=== PATIENT | female | born 1935 | race Caucasian/White ===

== ENCOUNTER 2017-04-01 10:01 | Emergency (ER) | payer MEDICARE, OTHER ==
[~2017-04-01] VITALS: Ht 160 cm; Wt 85.0 kg
[~2017-04-01 10:01] MED LIST: ACET325 PO; AMLO10 PO; ASPI81TA82 PO; EXEL1.5C PO; IMOD2TAB PO; MEMA10 PO; METO25 PO; MIRA33502 PO; TUMS500C PO; ZITH500T PO; ZOCO10TA PO; ZYPR5TAB PO
[2017-04-01 10:09] VITALS: BP 145/69; PULSE 58; RESP 16; O2SAT 95
[2017-04-01 10:13] VITALS: BP 164/69; PULSE 59; RESP 18; TEMP 97.7; O2SAT 95
--- NOTE | 2017-04-01 11:23 | RADRPT ---
EXAM DATE/TIME: 04/01/2017 10:47 [facility] COMPARISON: No previous studies available for comparison. INDICATIONS : Right hand pain post fall. MEDICAL HISTORY : Unobtainable. SURGICAL HISTORY : Unobtainable. ENCOUNTER: Initial ACUITY: 1 day PAIN SCORE: 1/10 LOCATION: Right hand FINDINGS: Three view examination of the right hand demonstrates soft tissue swelling. There is fracture of the distal radius with intra-articular extension. Ulnar styloid fracture. Scattered degenerative changes primarily involving the interphalangeal joints. CONCLUSION: 1. Distal radius and ulnar styloid fractures. Garcia Murcia MD on April 01, 2017 at 11:20 Board Certified Radiologist. This report was verified electronically.
--- NOTE | 2017-04-01 11:24 | RADRPT ---
EXAM DATE/TIME: 04/01/2017 10:54 [facility] COMPARISON: No previous studies available for comparison. INDICATIONS : Right forearm pain post fall. MEDICAL HISTORY : Unobtainable. SURGICAL HISTORY : Unobtainable. ENCOUNTER: Initial ACUITY: 1 day PAIN SCORE: 1/10 LOCATION: Right forearm FINDINGS: Two view examination of the right forearm demonstrates soft tissue swelling. Ulnar styloid fracture. Minimal fracture distal radius without significant displacement. Intra-articular extension. CONCLUSION: Minimally displaced ulnar styloid and distal radius fractures. Garcia Murcia MD on April 01, 2017 at 11:22 Board Certified Radiologist. This report was verified electronically.
--- NOTE | 2017-04-01 11:44 | PD ---
HPI Chief Complaint: Musculoskeletal Complaint Time Seen by Provider: 10:24 Travel History International Travel<30 days: No Contact w/Intl Traveler<30days: No Traveled to known affect area: No History of Present Illness HPI Patient is 81 years old. EMS provides a history. 2 days ago she fell in the bathroom. A plain film was performed [facility] revealing a distal radius fracture. In the ER she denies pain in the wrist. She has no other injury to report. Swelling is constant. PFSH Past Medical History Alzheimer's Disease: Yes Anxiety: Yes Depression: Yes High Cholesterol: Yes Coronary Artery Disease: Yes Dementia: Yes Diabetes: No Diminished Hearing: No Hypertension: Yes Tetanus Vaccination: Unknown Menopausal: Yes Past Surgical History Surgical History: Unable to Obtain Social History Alcohol Use: No Tobacco Use: No Substance Use: No Allergies-Medications (Allergen,Severity, Reaction): Coded Allergies: Iodine (Verified Allergy, Severe, 04/01/17) Shellfish (Verified Allergy, Severe, 04/01/17) Reported Meds & Prescriptions Reported Meds & Active Scripts Active Reported Vitamin D3 (Cholecalciferol) 400 Unit Tab 400 Units PO DAILY Zyprexa (Olanzapine) 7.5 Mg Tab 7.5 Mg PO DAILY Milk of Magnesia Liq (Magnesium Hydroxide) 400 Mg/5 Ml Susp 30 Ml PO DAILY Namenda Xr (Memantine) 28 Mg Caper 28 Mg PO DAILY Metoprolol Tartrate 25 Mg Tab 25 Mg PO BID Lexapro (Escitalopram Oxalate) 10 Mg Tab 10 Mg PO DAILY Neurontin (Gabapentin) 300 Mg Cap 300 Mg PO HS Atorvastatin (Atorvastatin Calcium) 20 Mg Tab 20 Mg PO HS Ecotrin Low Strength (Aspirin) 81 Mg Tabdr 81 Mg PO DAILY Amlodipine (Amlodipine Besylate) 10 Mg Tab 10 Mg PO DAILY Tylenol (Acetaminophen) 325 Mg Tab 650 Mg PO Q6H PRN Review of Systems Except as stated in HPI: all other systems reviewed are Neg General / Constitutional: No: Fever Physical Exam Narrative GENERAL: 81-year-old female, WNWD, NAD SKIN: Focused skin assessment warm/dry. HEAD: Atraumatic. Normocephalic. EYES: Pupils equal and round. No scleral icterus. No injection or drainage. ENT: No nasal bleeding or discharge. Mucous membranes pink and moist. NECK: Trachea midline. No JVD. CARDIOVASCULAR: Regular rate and rhythm. No murmur appreciated. RESPIRATORY: No accessory muscle use. Clear to auscultation. Breath sounds equal bilaterally. GASTROINTESTINAL: Abdomen soft, non-tender, nondistended. Hepatic and splenic margins not palpable. MUSCULOSKELETAL: Ecchymosis/swelling/tenderness throughout the R DRUJ. No gross deformity otherwise. NEUROLOGICAL: Awake and alert. No obvious cranial nerve deficits. Motor grossly within normal limits. Normal speech. PSYCHIATRIC: Appropriate mood and affect; insight and judgment normal. Data Data Last Documented VS Vital Signs Date Time Temp Pulse Resp B/P Pulse Ox O2 Delivery O2 Flow Rate FiO2 04/01/17 10:13 60 18 04/01/17 10:13 97.7 164/69 95 Room Air VS reviewed Orders Forearm (2vws) (04/01/17 10:26) Hand, Complete ([id number]) (04/01/17 10:26) Splint Or Brace Apply/Monitor (04/01/17 12:05) MDM Medical Decision Making Medical Screen Exam Complete: Yes Emergency Medical Condition: Yes Medical Record Reviewed: Yes Differential Diagnosis Intra-articular fracture, hand bone fracture, radius fracture Narrative Course Last 24 hours Impressions Radius/Ulna X-Ray 04/01/17 1026 Signed Impressions: Service Date/Time: Saturday, April 01, 2017 10:54 - CONCLUSION: Minimally displaced ulnar styloid and distal radius fractures. Garcia Murcia MD Hand X-Ray 04/01/17 1026 Signed Impressions: Service Date/Time: Saturday, April 01, 2017 10:47 - CONCLUSION: 1. Distal radius and ulnar styloid fractures. Garcia Murcia MD Sugar tong splint applied. No compartment syndrome. Radial artery 2+ bilaterally. Follow-up with orthopedics as outpt. D/w Dr Lopez. Diagnosis Primary Impression: Radius and ulna distal fracture Qualified Code: S52.501A - Radius and ulna distal fracture, right, closed, initial encounter Referrals: Oscar Lopez MD 2 days Additional Instructions: You have a choice when it comes to health care, and we are glad that you chose [facility]. Hopefully, we have met your expectations on today's visit. You are welcome to return to [facility] at any time, as we are committed to meeting the health care needs of our community. Med/Other Pt SpecificInfo: No Change to Meds Disposition: 01 DISCHARGE HOME Condition: Stable Ramon Posey MD April 01, 2017 11:44
[2017-04-01] MEDS ORDERED: ZYPR7.5T PO (12:40)
[2017-04-01] MEDS ORDERED: MEMA28CA PO (12:40)
[2017-04-01] MEDS ORDERED: LEXA10TA PO (12:40)
[2017-04-01] MEDS ORDERED: VITD400 PO (12:40)
[2017-04-01] MEDS ORDERED: NEUR300C PO (12:40)
[2017-04-01] MEDS ORDERED: MILKSUS PO (12:40)
[2017-04-01] MEDS ORDERED: ASPI-147 PO (12:40)
[2017-04-01] MEDS ORDERED: AMLO10TA2 PO (12:40)
[2017-04-01] MEDS ORDERED: ATOR20TA15 PO (12:40)
[2017-04-01] MEDS ORDERED: METO25TA3 PO (12:40)
[2017-04-01] MEDS ORDERED: TYLE325T PO (12:40)
[2017-04-01 14:37] VITALS: BP 159/66; PULSE 58; RESP 17; O2SAT 96
== END 2017-04-01 14:43 | disposition home or self-care (01) ==
LOC: NEPE 10:01
DX: S52.501A Unspecified fracture of the lower end of right radius, initial encounter for closed fracture (principal); W18.39XA Other fall on same level, initial encounter; Y93.89 Activity, other specified; Y92.121 Bathroom in nursing home as the place of occurrence of the external cause; Y99.8 Other external cause status
CPT/HCPCS: 29125; 73090; 73130